=== PATIENT | male | born 1935 | race Caucasian/White ===

== ENCOUNTER 2020-04-17 14:45 | Emergency (ER) | payer MEDICARE, MEDICAID ==
[~2020-04-17] VITALS: Ht 170.2 cm; Wt 72.0 kg
[~2020-04-17 14:45] MED LIST: MULT-1085 PO; OMEP20CA15 PO; THY15T PO
[2020-04-17] MEDS ORDERED: LISI-600 PO (16:24)
[2020-04-17] MEDS ORDERED: FLO0.4C PO (16:24)
[2020-04-17] MEDS ORDERED: THY60T PO (16:24)
[2020-04-17] MEDS ORDERED: CHOL500050 PO (16:24)
[2020-04-17] MEDS ORDERED: MECO10005 PO (16:24)
[2020-04-17] MEDS ORDERED: VITA80008 PO (16:24)
[2020-04-17] MEDS ORDERED: METO25TA6 PO (16:24)
--- NOTE | 2020-04-17 16:42 | NUR ---
Been in continued contact with Tammy and Denilson at [facility]. Patient was to be medically screened/cleared to be transfered to [facility]. Spoke with Denilson who stated that she would be arranging transport via [employer] with a ETA of 1800. Cheryle stated that she is able to review all of patients chart besides the med rec. Faxed patients medication rec to the attention of Cheryle and Tammy De La Torre.
--- NOTE | 2020-04-17 16:43 | NUR ---
pt resting comfortably does not have any needs at this time, awaiting transport to [facility]
[2020-04-17 17:45] VITALS: BP 114/63
== END 2020-04-17 18:18 ==
LOC: ER 14:45
DX: Z04.3 Encounter for examination and observation following other accident (principal); G35 Multiple sclerosis; Z88.8 Allergy status to other drugs, medicaments and biological substances; Z79.899 Other long term (current) drug therapy; W05.0XXA Fall from non-moving wheelchair, initial encounter; Y93.89 Activity, other specified; Y92.89 Other specified places as the place of occurrence of the external cause; Y99.8 Other external cause status
CPT/HCPCS: 99284